=== PATIENT | female | born 1960 | race Caucasian/White ===

== ENCOUNTER 2023-08-03 07:36 | Day surgery (SDC) | payer OTHER, SELFPAY ==
[2023-08-03] VITALS (10 sets, daily range): BP systolic 128–135; BP diastolic 70–76; BMI 35.6
[2023-08-03] MEDS: LOW STRENGTH ASPIRIN 81 MG PO (08:04)
[2023-08-03] MEDS: NSS 256 ML IV (08:04)
[2023-08-03 08:18] LABS: Glucose - Point of Care 106 mg/dl (70-99)
--- NOTE | 2023-08-03 09:31 | ITS.CL.CATH ---
[employer] [facility] - Catheterization
Cardiac Catheterization
Procedure Report:
CARDIAC CATHETERIZATION REPORT
Date of Procedure: 08/03/2023
Referring: Shaan Cox MD
Indication: Exertional dyspnea/chest discomfort
HEMODYNAMIC DATA
AO: 136/68
LV: 136/20
LEFT VENTRICULOGRAPHY: Normal ventricular wall motion with EF 65%. The ascending aorta is borderline in size
CORONARY ANGIOGRAPHY
Dominance: Right
Left Main: Normal
LAD: 20% mid stenosis with otherwise trivial luminal irregularities
Circumflex: 10-20% proximal stenosis otherwise normal
RCA: Dominant vessel with trivial luminal irregularities
Closure Device: None-the procedure was performed via the right radial artery. The Mason's test was normal prior to the procedure.
Radiation (mGy): 262
DAP (cm2.Gy): 17.5
Fluoroscopy time: 2.1 minutes
CONCLUSIONS
1: Normal left ventricular function with EF 65%
2: Borderline dilation of the ascending aorta
3. Trivial CAD
4. Recommend continued aspirin and statin (goal LDL less than 70) with serial echocardiographic follow-up of ascending aortic size
Copy to: Shaan Cox MD, Carmen Gomez MD ([place], [place])
Bartolome Sims MD, [facility], [facility]
--- NOTE | 2023-08-03 10:44 | PTCARENOTE ---
HR 38-42 intermittent drop. Asymptomatic. Tamra Zimmer PROFESSOR OF PSYCHIATRY notified. Ongoing care plan.
== END 2023-08-03 12:35 | disposition home or self-care (01) ==
LOC: CATH 07:36
PROVIDERS: ATTENDING PHYSICIAN Internal Medicine Cardiovascular Disease; FAMILY PHYSICIAN Family Medicine; OTHER PHYSICIAN Internal Medicine Cardiovascular Disease
DX: I25.10 Atherosclerotic heart disease of native coronary artery without angina pectoris (principal); R07.89 Other chest pain; R06.09 Other forms of dyspnea; I10 Essential (primary) hypertension; E78.5 Hyperlipidemia, unspecified; E11.9 Type 2 diabetes mellitus without complications; E66.9 Obesity, unspecified; Z68.35 Body mass index [BMI] 35.0-35.9, adult; Z79.84 Long term (current) use of oral hypoglycemic drugs; Z79.82 Long term (current) use of aspirin
CPT/HCPCS: 82962; 93458; C1894; Q9967